=== PATIENT | female | born 1975 | race Caucasian/White ===

== ENCOUNTER 2016-08-03 10:51 | Emergency (ER) | payer BC ==
[2016-08-03] MEDS ORDERED: PROCHLORPERAZINE 5 MG/ML 2 ML VIAL ONE (11:58)
[2016-08-03] MEDS ORDERED: DIPHENHYDRAMINE HCL 50 MG/1 ML VIAL ONE (11:58)
[2016-08-03] MEDS ORDERED: DIAZEPAM 5 MG/ML SYRINGE 2 ML ONE (11:59)
[2016-08-03 12:43] LABS: HCG,QUALITATIVE URINE NEGATIVE
--- NOTE | 2016-08-03 13:39 | CT ---
NECK CTA HISTORY: Left-sided neck pain. Following the administration of 80 cc of Isovue 370 contiguous axial images were acquired from the level of the orbital apices to the level of the parish. Three-dimensional imaging was not performed. Diameter stenosis was calculated utilizing NASCET criteria. AORTIC ARCH: Unremarkable. Normal caliber.. INNOMINATE AND SUBCLAVIAN ARTERIES: No high-grade stenosis or occlusion.. VERTEBRAL ARTERIES: No high-grade stenosis or occlusion.. COMMON CAROTID ARTERIES: Tortuous distal right cervical internal carotid artery. No high-grade stenosis or occlusion. INTERNAL CAROTID ARTERIES: No high-grade stenosis or occlusion. SOFT TISSUES: No gross adenopathy or mass lesion noted.. LUNGS: Incompletely depicted pleurally based focus measuring 8 mm, image 83. IMPRESSION: 1. No high-grade stenosis or occlusion of the common or internal carotid arteries. No gross mass effect or adenopathy. 2. 8 mm pleurally based lesion at the right lower lobe, incompletely depicted. Consider follow-up chest CT. Results were electronically transmitted to the electronic medical record at 08/03/2016 at 1355 hours.
== END 2016-08-03 14:23 | disposition home or self-care (01) ==
LOC: ED 10:51
DX: M54.2 Cervicalgia (principal); E66.9 Obesity, unspecified; M79.7 Fibromyalgia; Y04.0XXA Assault by unarmed brawl or fight, initial encounter; Y92.038 Other place in apartment as the place of occurrence of the external cause; Y99.8 Other external cause status; Z79.899 Other long term (current) drug therapy; Z88.0 Allergy status to penicillin; Z88.2 Allergy status to sulfonamides; Z88.8 Allergy status to other drugs, medicaments and biological substances
CPT/HCPCS: 81025; 70498; 96375 ×2; 99283 ×2; 96374; J1200; J0780; J3360

== ENCOUNTER 2016-08-20 11:02 | Emergency (ER) | payer BC ==
[2016-08-20] MEDS ORDERED: IOPAMIDOL 370 (76%) 100 ML VIAL IV ONE (11:03)
[2016-08-20 11:49] LABS: INR 1.84; PROTHROMBIN TIME 19.9 SECONDS (9.3-11.4)
[2016-08-20 11:50] LABS: ABSOLUTE NEUTROPHIL COUNT 3.6 K/mm3 (1.8-7.7); BASO % 0.6 % (0.2-1.0); EOS # 0.1 (0.0-0.5); HEMATOCRIT 43.6 % (37.0-47.0); HEMOGLOBIN 14.9 gm/l (12.0-16.0); IMM NEUT% 0.3 % (0-1); LYMPH % 41.9 % (15-45); MEAN CELL VOLUME 88.1 fl (81.0-99.0); MEAN CORPUSCULAR HEMOGLOBIN 30.1 pg (27.0-31.0); MEAN CORPUSCULAR HGB CONC 34.2 g/dl (33.0-37.0); MEAN PLATELET VOLUME 9.7 fl (7.4-10.4); MONO # 0.4 (0.0-0.8); MONO % 5.6 % (4-12); NEUT % 49.6 % (43-75); PLATELET COUNT 320 K/mm3 (130-400); RED CELL DISTRIBUTION WIDTH 13.7 % (11.5-14.5)
[2016-08-20 11:51] LABS: CALCIUM 9.2 mg/dL (8.6-10.3)
[2016-08-20 11:52] LABS: ALB/GLOB RATIO 1.1 (>1.0)
[2016-08-20 11:57] LABS: TROPONIN I < 0.01 ng/ml (0.0-0.06)
[2016-08-20 12:01] LABS: CKMB ISOENZYME 0.8 ng/ml (0.6-6.3)
--- NOTE | 2016-08-20 12:24 | CT ---
CTA CHEST FOR PE History: Known pulmonary embolus with increasing dyspnea. Comparison: 08/14/2016. Procedure: 1 mm axial images were obtained through the chest following the administration of 80cc's of Isovue-370 intravenous contrast. Stacked reconstructed 3 mm images were then photographed in the axial, coronal and sagittal planes. 3-D reconstructed MIP images were also performed on the scanner workstation. Findings: The visualized thyroid gland appears to be appropriate. No significant mediastinal adenopathy is visualized. There may be mild bilateral hilar adenopathy. The heart size is appropriate. The aortic caliber is within expected. The pulmonary arterial tree is adequately opacified. There are persistent filling defects identified within the arterial segments to the right upper and right lower lobes appear to be stable to slightly decreased in the amount of clot burden when compared to the prior exam. The filling defects within the left upper lobe are less conspicuous. The central airways appear to be clear. No effusion or pneumothorax is visualized. Scans through the upper abdomen are grossly unremarkable. A small 3 mm pulmonary nodule suggested within the right middle lobe on lung window image #56. A 4 mm nodule is also suggested on image 53. The remaining pleural-based nodular foci on prior exam are less conspicuous, appearing likely due to respiratory motion artifact. Impression: 1. Reidentification of pulmonary embolus, primarily affecting the right upper and right lower lobe arterial segments on this examination. The amount of clot burden is stable to slightly decreased when compared to the prior exam. 2. Mild bilateral hilar adenopathy. 3. Subcentimeter pulmonary nodules within the right middle lobe and right lower lobe. Several of the previously described nodular foci are less conspicuous currently due to respiratory motion artifact.
== END 2016-08-20 13:26 | disposition home or self-care (01) ==
LOC: ED 11:02
DX: I26.99 Other pulmonary embolism without acute cor pulmonale (principal); E66.9 Obesity, unspecified
CPT/HCPCS: 85025; 82550; 82553; 80053; 85610; 84484; 71275; 99284 ×2; 93005; Q9967